=== PATIENT | male | born 2000 | race Two or more races ===

== ENCOUNTER 2019-01-01 12:18 | Emergency (ER) | payer SELFPAY ==
[~2019-01-01] VITALS: Ht 160 cm; Wt 81.6 kg
--- NOTE | 2019-01-01 12:58 | PHYS DOC ---
Past Medical History Past Medical History: No Pertinent History, Asthma (used to use albuterol for asthma but does not haev a current prescription) (VIRGEN TORRES NP) Past Surgical History: No Surgical History (VIRGEN TORRES NP) Adult General Chief Complaint Chief Complaint: SORE THROAT HPI HPI Patient is a 18 year old male who presents with 4 day hx of worsening sore throat, bilateral ear pressure/pain, occasional productive cough, and nausea with vomiting x 1 last noc. States younger sister diagnosed with strep throat at the beginning of last week. Denies any current SOA or difficulty breathing. Swa llowing, eating, drinking fluids exacerbates throat pain. Has not taken anything OTC to alleviate symptoms. (VIRGEN TORRES NP) Review of Systems Review of Systems Constitutional: Denies fever or chills. Eyes: Denies change in visual acuity, redness, or eye pain. HENT: Complains of nasal congestion, runny nose, and sore throat. Complains of bilateral ear pressure and pain. Respiratory: Reports occasional productive cough. Denies shortness of breath. Cardiovascular: No additional information not addressed in HPI GI: Denies abdominal pain. Reports one epsiode of nausea/vomiting last evening but denies bloody stools or diarrhea. : Denies dysuria or hematuria Musculoskeletal: Denies back pain or joint pain Integument: Denies rash or skin lesions Neurologic: Denies headache, focal weakness or sensory changes Endocrine: Denies polyuria or polydipsia All other systems were reviewed and found to be within normal limits, except as documented in this note. (VIRGEN TORRES NP) Allergies Allergies Allergies Coded Allergies Type Severity Reaction Last Updated Verified No Known Drug Allergies 01/01/19 No (HUANG HERRERA DO) Physical Exam Physical Exam Constitutional: Well developed, well nourished, no acute distress, non-toxic appearance. HENT: Normocephalic, atraumatic, bilateral external ears normal, canals WNL with intact TMs. Oropharynx moist, no oral exudates, tonsils slightly erythematous with no exudate noted. Nose normal with mucosal membranes noted to have clear drainage. Eyes: PERRLA, EOMI, conjunctiva normal, no discharge. Neck: Normal range of motion, no tenderness, supple, no stridor. No cervical lymphadenopathy noted. Cardiovascular:Heart rate regular rhythm, no murmur. Lungs & Thorax: Bilateral breath sounds clear to auscultation. Abdomen: Bowel sounds normal, soft, no tenderness, no masses, no pulsatile masses. Skin: Warm, dry, no erythema, no rash. Back: No tenderness, no CVA tenderness. Extremities: No tenderness, no cyanosis, no clubbing, ROM intact, no edema. Neurologic: Alert and oriented X 3, normal motor function, normal sensory function, no focal deficits noted. Psychologic: Affect normal, judgement normal, mood normal. (VIRGEN TORRES NP) Current Patient Data Vital Signs Vital Signs Date Time Temp Pulse Resp B/P (MAP) Pulse Ox O2 Delivery O2 Flow Rate FiO2 01/01/19 13:22 98.1 72 18 129/78 (95) 96 Room Air 98.1 (HUANG HERRERA DO) Lab Values Laboratory Tests Test 01/01/19 12:55 Group A Streptococcus Rapid Negative (NEGATIVE) (HUANG HERRERA DO) Lab Values Laboratory Tests Test 01/01/19 12:55 Group A Streptococcus Rapid Negative (NEGATIVE) (VIRGEN TORRES NP) Radiology/Procedures Radiology/Procedures [] (VIRGEN TORRES NP) Course & Med Decision Making Course & Med Decision Making Patient presents with URI symptoms for past several days - concerned that he may have strep as his younger sister was diagnosed with strep one week ago. Complains of sore throat, nasal congestion with runny nose, and intermittent cough. Strep test ordered to rule out strep. Pertinent Labs and Imaging studies reviewed. (See chart for details) rapid strep test negative Patient with acute pharyngitis and viral uri with cough. Treatment to be aimed at symptoms: Ibuprofen/Tylenol for fever/pain, decongestants for ear pressure and rhinorrhea, and Mucinex for excessive sputum. Increased fluids and rest. (VIRGEN TORRES NP) Dragon Disclaimer Dragon Disclaimer This electronic medical record was generated, in whole or in part, using a voice recognition dictation system. (VIRGEN TORRES NP) Departure Departure Impression: Primary Impression: Viral URI with cough Additional Impression: Acute pharyngitis Disposition: HOME, SELF-CARE Condition: STABLE Referrals: NO PCP (PCP) Attending Signature Attending Signature I have reviewed the PA/POST COMMANDER's note and plan of care. I was available for consultation as needed during the patient's visit in the emergency department. I agree with the clinical impression, plan, and disposition. (HUANG HERRERA DO) Problem Qualifiers Additional Impression: Acute pharyngitis Pharyngitis/tonsillitis etiology: unspecified etiology Qualified Codes: J02.9 - Acute pharyngitis, unspecified VIRGEN TORRES NP Jan 01, 2019 12:57 HUANG HERRERA DO Jan 03, 2019 13:17
[2019-01-01 13:22] VITALS: BP 129/78
== END 2019-01-01 13:38 | disposition home or self-care (01) ==
LOC: ER 12:18
DX: J06.9 Acute upper respiratory infection, unspecified (principal); R05 Cough; J02.9 Acute pharyngitis, unspecified; J45.909 Unspecified asthma, uncomplicated
CPT/HCPCS: 87070; 87880; 99283